=== PATIENT | male | born 1985 | race Caucasian/White ===

== ENCOUNTER 2023-09-02 10:19 | Outpatient (CLI) | payer BC, SELFPAY ==
--- NOTE | ~2023-09-02 | US_ITS ---
EXAMINATION: US thyroid DATE: 09/02/2023 10:35 INDICATION: Family history of malignant thyroid cancer TECHNIQUE: Multiple ultrasound images of the thyroid were obtained. COMPARISON: None. FINDINGS: The right thyroid lobe measures 5.0 x 1.7 x 1.6 cm. The left thyroid lobe measures 4.5 x 1.5 x 1.4 c m. The thyroid isthmus measures 2 mm in thickness. No discrete nodules identified. There is normal ec hotexture, echogenicity and vascular flow throughout the thyroid gland. IMPRESSION: 1. Normal thyroid ultrasound. Reviewed, dictated and finalized at location B.
== END 2023-09-02 10:20 ==
PROVIDERS: PCP Physician Assistant; Visit Provider Physician Assistant
DX: Z80.8 Family history of malignant neoplasm of other organs or systems (principal)
CPT/HCPCS: 76536